=== PATIENT | male | born 1980 | race Caucasian/White ===

== ENCOUNTER 2021-01-31 17:39 | Emergency (ER) | payer SELFPAY ==
--- NOTE | ~2021-01-31 | XR_ITS ---
EXAMINATION: XR foot RT min 3V DATE: 01/31/2021 18:10 INDICATION: Right foot pain. TECHNIQUE: 4 views of right foot were obtained. COMPARISON: None. FINDINGS: Bone alignment is normal. No fracture. 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 There is an enthesophyte at plantar aspect of calcaneal tuberosity. IMPRESSION: 1. No fracture. Reviewed, dictated and finalized at location A. IMPRESSION: 1. No fracture.
[2021-01-31 17:50] VITALS: BP 125/92; PULSE 93; RESP 18; TEMP 37.6; O2SAT 99
--- NOTE | 2021-01-31 18:01 | ED.LOWEXIN ---
HPI - Extremity Injury (Lower) General Chief Complaint: Extremity Injury, Lower Stated Complaint: rt foot pain Time Seen by Provider: 01/31/21 18:01 Source: patient and RN notes reviewed Mode of arrival: ambulatory Limitations: no limitations History of Present Illness HPI Narrative: 40 year old male who presents to [facility] with complaints of pain to the plantar aspect of his right foot for one week duration. Patient denies any known injury to his foot or any fall. Yesterday he was stepping over something and heard a pop to his foot with increase in pain noted with some pain in dorsal area of foot also now.. Patient denies any tingling or numbness to his foot with strong pedal and posterior tibial pules present. 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 complaint: other Onset (ago): week(s) Injury: Right: foot Type of Injury: unknown Severity: moderate Severity scale (1-10): 5 Relieving factors: rest Exacerbating factors: weight bearing Context: other (no known injury) Associated symptoms: snap/pop sensation Treatments prior to arrival: cold therapy and other (ibuprofen) Related Data Home Medications Medication Instructions Recorded Confirmed No Home Medications 01/31/21 01/31/21 Allergies Allergy/AdvReac Type Severity Reaction Status Date / Time No Known Allergies Allergy Verified 01/31/21 17:53 Review of Systems Review of Systems: Narrative: CONSTITUTIONAL: Denies fever, chills, or sweats. EYES: Denies visual changes, redness, or discharge. ENT: Denies rhinorrhea, congestion, sore throat, or otalgia. CARDIOVASCULAR: Denies chest pain, palpitations, or edema. RESPIRATORY: Denies cough or dyspnea. GASTROINTESTINAL: Denies abdominal pain, nausea, vomiting, or diarrhea. GENITOURINARY: Denies dysuria or hematuria. SKIN: Denies rash or itching. MUSCULOSKELETAL: Denies back pain, joint pain, or myalgia.Positive for plantar and dorsal pain of right foot NEUROLOGIC: Denies headache, numbness, or weakness. PSYCHIATRIC: Denies anxiety or depression. All systems reviewed & are unremarkable except as noted in HPI and below PMFSH Past Medical History Medical History (Updated 01/31/21 @ 19:07 by Melia Stein NP) No significant past medical history Surgical History Surgical History (Updated 01/31/21 @ 19:04 by Melia Stein NP) H/O arthroscopic knee surgery Family History Family History (Updated 01/31/21 @ 19:07 by Melia Stein NP) Other No significant family history Social History Social History (Updated 01/31/21 @ 19:04 by Melia Stein NP) Smoking status: Current every day smoker Alcohol intake: current Substance use: never Living arrangements: with family Gender identity (if verbalized by the patient): Male Comments At time of signature, agree with nursing past medical, surgical, social and family history. There is no relevant family history pertinent to the presenting complaint Exam Narrative: Exam Narrative: GENERAL: Well-appearing, well-nourished, and in no acute distress. HEAD: Normocephalic, atraumatic. EYES: PERRLA and EOMI. ENT: Nares clear, no rhinorrhea or epistaxis. Mucous membranes moist. NECK: Supple. no lymphadenopathy CHEST: Clear to auscultation. No respiratory distress.SAO2 99% on room air HEART: Regular rate and rhythm. No murmur heard. Normal peripheral pulses. ABDOMEN: Soft, nontender, nondistended, normal active bowel sounds. EXTREMITIES: Normal range of motion. No edema. pain to plantar region of right foot and since yesterday some dorsal foot pain, pulses are palpable of good quality, ambulation increases pain to plantar aspect SKIN: Warm, dry, no rash. NEURO: No focal deficits. Alert and oriented x3. Course Vital Signs Vital signs: Vital Signs Temperature 37.6 C 01/31/21 17:50 Pulse Rate 93 01/31/21 17:50 Respiratory Rate 18 01/31/21 17:50 Blood Pressure 125/92 H 01/31/21 17:50
== END 2021-01-31 18:45 | disposition home or self-care (01) ==
PROVIDERS: Emergency Provider Registered Nurse; PCP Emergency Medicine
DX: M72.2 Plantar fascial fibromatosis (principal); F17.200 Nicotine dependence, unspecified, uncomplicated
CPT/HCPCS: 73630; 99203; G0463